=== PATIENT | female | born 1960 | race Caucasian/White ===

== ENCOUNTER → 2016-03-07 | Outpatient (CLI) | payer BC ==
[~2016-03-07] MED LIST: CIPR-255 PO; CITA20TA4 PO; CRAN1CAP15 PO; MISCCAP80 PO; OMEGCAP2 PO; OXYB5TAB74 PO; PHEN-775 PO; PRLSR20 PO
[2016-03-07 13:22] LABS: BASO % 0.6 %; BASO ABS # 0.03 K/uL (0-0.2); COMPLETE YES; EOS % 2.6 %; HEMATOCRIT 41.5 % (37-47); IG% 0.2 %; LYMPH % 32.8 %; LYMPH ABS # 1.63 K/uL (1.2-3.4); MEAN CELL VOLUME 86.3 fL (80-100); MEAN CORPUSCULAR HEMOGLOBIN 27.9 pg (25-34); MEAN CORPUSCULAR HGB CONC 32.3 g/dl (32-36); MEAN PLATELET VOLUME 12.2 fL (7.4-10.4); MONO % 5.2 %; NEUT % 58.6 %; PLATELET COUNT 201 K/uL (130-400); RED BLOOD COUNT 4.81 M/uL (4.2-5.4); WHITE BLOOD COUNT 4.97 K/uL (4.8-10.8)
[2016-03-07 14:05] LABS: BLOOD UREA NITROGEN 10 mg/dl (7-18); BUN/CREATININE RATIO 11.9 (10-20); CALCIUM 9.3 mg/dl (8.5-10.1); CARBON DIOXIDE 28 mmol/L (21-32); CHLORIDE 105 mmol/L (98-107); CREATININE 0.87 mg/dl (0.60-1.20); GLUCOSE 85 mg/dl (70-99); SODIUM 142 mmol/L (136-145)
== END | disposition home or self-care (01) ==
LOC: C.LAB1850 12:30
PROVIDERS: ATTEND Urology
DX: N20.0 Calculus of kidney (principal)

== ENCOUNTER 2016-03-13 06:11 | Day surgery (SDC) | payer BC, OTHER ==
[2016-03-08 15:39] VITALS: BMI 35.0
[~2016-03-13] VITALS: Ht 170.2 cm; Wt 102.3 kg
[~2016-03-13 06:11] MED LIST changes: -CIPR-255 PO; -OXYB5TAB74 PO; -PHEN-775 PO
[2016-03-13 06:32] VITALS: BP 147/95; PULSE 65; TEMP 36; O2SAT 95; Ht 170.2 cm; Wt 102.3 kg
[2016-03-13] MEDS ORDERED: CIPROFLOXACIN 400MG / 200ML D5W ONE (06:43)
--- NOTE | 2016-03-13 07:00 | History & Physical Bridge Note ---
H&P Re-Evaluation Bridge Note: I have examined the patient, reviewed the History & Physical and in the interval since the performance of the History & Physical I have noted the following changes of clinical significance: No changes noted
[2016-03-13] MEDS ORDERED: PROPOFOL IV EMULSION 10 MG/ML 20 ML VIAL IV ONE (08:11)
[2016-03-13] MEDS ORDERED: DEXAMETHASONE SOD INJ 4 MG/ML VIAL ONE (08:11)
[2016-03-13] MEDS ORDERED: LIDOCAINE HCL 2% 2 ML VIAL (20MG/ML) ONE (08:11)
[2016-03-13] MEDS ORDERED: ONDANSETRON INJ 2 MG/ML 2 ML VIAL ONE (08:11)
[2016-03-13] MEDS ORDERED: MIDAZOLAM HCL 1 MG/ML 2ML VIAL ONE (08:12)
[2016-03-13] MEDS ORDERED: FENTANYL CITRATE INJ 50 MCG/1 ML 2 ML VIAL ONE (08:12)
[2016-03-13] MEDS ORDERED: FENTANYL CITRATE INJ 50 MCG/1 ML 2 ML VIAL IV PRN (08:15)
[2016-03-13] MEDS ORDERED: EpHEDrine SULFATE INJ 50 MG/ML AMP IV PRN (08:15)
[2016-03-13] MEDS ORDERED: ATROPINE SULFATE 0.1 MG/ML 5ML SYR IV PRN (08:15)
[2016-03-13] MEDS ORDERED: CONRAY 30% 150ML BOTTLE INSTIL ONE (08:21)
[2016-03-13] MEDS ORDERED: CIPR-255 PO (08:27)
[2016-03-13] MEDS ORDERED: PHEN-775 PO (08:27)
[2016-03-13] MEDS ORDERED: OXYB5TAB74 PO (08:27)
--- NOTE | 2016-03-13 08:28 | Discharge Instructions ---
Discharge Instructions Admission Reason for Admission: Stones Discharge Discharge Diagnosis / Problem: R ureteral stone s/p laser litho Discharge Goals Goal(s): Improve function, Improve disease control, Therapeutic intervention Activity Recommendations Activity Limitations: per Instructions/Follow-up section Lifting Limitations: gradually increase as tolerated Exercise/Sports Limitations: rest today May Resume Sexual Activity: when tolerated Shower/Bathe: no limitations Driving or Machine Use: resume 1 day after discharge . Instructions / Follow-Up Instructions / Follow-Up As scheduled in office for stent removal Discharge Diet Recommended Diet: Regular Diet (good fluid intake) Procedures Procedures Performed: Cystoscopy, Right semi rigid Ureteroscopy, Laser Lithotripsy of right ureteral stone, basket stone extraction, Right ureteral stent insertion, right retrograde pyelogram Pending Studies Studies pending at discharge: no Medical Emergencies . Who to Call and When: Medical Emergencies: If at any time you feel your situation is an emergency, please call 911 immediately. . Non-Emergent Contact Non-Emergency issues call your: Urologist Call Non-Emergent contact if: you have a fever, temperature is above 101, your pain is not controlled, your pain is worsening, your pain is unusual for you, your pain is concerning you, you have any medication questions . . "Provider Documentation" section prepared by Callum Donato. VTE Core Measure Inpt VTE Proph given/why not?: SCD's
--- NOTE | 2016-03-13 08:29 | [facility] Post Operative Brief Note ---
Immediate Operative Summary Operative Date Mar 13, 2016. Pre-Operative Diagnosis Right side hydronephrosis, right ureteral stone Post-Operative Diagnosis Right side hydronephrosis, right ureteral stone with impaction Procedure(s) Performed Cystoscopy, Right semi rigid Ureteroscopy, Laser Lithotripsy of right ureteral stone, basket stone extraction, Right ureteral stent insertion, right retrograde pyelogram Surgeon Dr. Callum Donato Heavy Repairer Surgeon(s) None Estimated Blood Loss 0 mL Findings Impacted stone as noted on prior CT scan removed, no ureteral injury, good stent position after completion of case Specimens Permanent specimens A: Right ureteral stone fragments for analysis Drains 6 fr 26 cm loop stent Anesthesia [facility] Complication(s) None Disposition Recovery Room / PACU
[2016-03-13] MEDS ORDERED: OXYCODONE/ACETAMINOPHEN 5-325 TAB PO PRN (08:30)
[2016-03-13] MEDS ORDERED: ALBUTEROL HFA INHALER 8.5 GM INH ONE (08:32)
--- NOTE | 2016-03-13 08:33 | Anesthesiology Progress Note ---
Anesthesia Post Op Note Date & Time Mar 13, 2016 at 08:32 Vital Signs Pain Intensity: 0 Vital Signs Past 12 Hours Date Time Temp Pulse Resp B/P Pulse Ox O2 Delivery O2 Flow Rate FiO2 03/13/16 06:32 36 65 18 147/95 95 Room Air Notes Mental Status: alert / awake / arousable, participated in evaluation Pt Amnestic to Procedure: Yes Nausea / Vomiting: adequately controlled Pain: adequately controlled Airway Patency, RR, SpO2: stable & adequate BP & HR: stable & adequate Hydration State: stable & adequate Anesthetic Complications: no major complications apparent
--- NOTE | 2016-03-13 08:55 | DIAGNOSTIC IMAGING REPORT ---
RETROGRADE INCLUDES KUB CLINICAL HISTORY: Right-sided stone. Laser lithotripsy. COMPARISON STUDY: IVP dated 01/18/2016 FINDINGS: 78 seconds of fluoroscopic time was utilized. 5 intraoperative fluoroscopic spot images were provided for interpretation. These demonstrate retrograde catheterization of the right ureter. There is an area of mid right ureteral narrowing at the mid sacral level, possibly secondary to a calculus. There is #4 appears to demonstrate a small filling defect within the ureter at this level. The final images demonstrate placement of a nephroureteral stent. Only proximal portion of the stent is visualized. IMPRESSION: Intraoperative fluoroscopic spot images during laser lithotripsy, and stent placement. Electronically signed by: Solis Bowman M.D. 03/13/2016 8:53 AM Dictated Date/Time: 03/13/2016 8:51 AM
--- NOTE | 2016-03-13 09:02 | OPERATIVE REPORT ---
DATE OF OPERATION: 03/13/2016 PREOPERATIVE DIAGNOSIS: Right distal ureteral stone with hydronephrosis. POSTOPERATIVE DIAGNOSIS: Same, impacted ureteral stone. PROCEDURE: Cystoscopy, right retrograde pyelography, right semirigid ureteroscopy with laser lithotripsy, stone extraction, ureteral stent placement. SURGEON: Dr. Callum Donato. COUNSELLORS: None. ANESTHESIA: General anesthesia with laryngeal mask. COMPLICATIONS: None. ESTIMATED BLOOD LOSS: Minimal. SPECIMENS SENT TO PATHOLOGY: Right ureteral stone fragments for chemical analysis. DRAINS LEFT IN PLACE: Include a 6-Anguillan 26-cm loop ureteral stent. FINDINGS: Impacted right ureteral stone at the level of the vessels, fragmented and removed in its entirety with no evidence of ureteral injury or residual stone, good stent position at completion of case. BRIEF HISTORY: Ms. Hanley is a pleasant 55-year-old female who I have seen as an outpatient for history of right-sided stone disease. Her pain abated and stone was not visible for lithotripsy on KUB. Minimal right ureteral fullness was noted on IVP. However, repeat CT scan despite the patient's lack of symptoms demonstrated persistence of her stone in her right ureter. Seeing that this has been present for a few months at this point, she is being brought in for endoscopic management of her stone. Please see H\T\P for further details. Intravenous ciprofloxacin provided for antibiotic coverage. PROCEDURE IN DETAIL: The patient was properly identified and brought to the operative suite after identification of appropriate consent on the chart, general anesthesia with laryngeal mask was initiated and the patient was prepped and draped in standard fashion for this procedure. Full timeout procedure was followed. A 22-Anguillan rigid cystoscope was passed into the bladder under direct visualization and bladder was surveyed in its entirety including 30- and 70-degree lenses. This demonstrated no intravesical lesions, papillary masses or calculi. Right-sided ureteral orifice was cannulated using an open-ended catheter and gentle retrograde pyelography was performed. A filling defect over the sacrum consistent with the patient's prior stone location was appreciated. An angled Sensor tip wire was able to be advanced up to the level of the right kidney without difficulties past this area. Semirigid ureteroscope was then advanced over a second working Sensor wire to the level of the stone which was directly visualized. This was fragmented using a 270 micron fiber and pieces were grasped using the Zero Tip basket and extracted. These were sent for chemical analysis. After removing all the visible pieces, ureteroscope was easily passed up to the level of the proximal ureter with no evidence of residual stones. No ureteral tears or injury were appreciated throughout the case. Complete exit ureteroscopy was performed confirming the lack of stones and injury as noted above. After this was complete, cystoscope was backloaded over the safety wire, the 6-Anguillan 26-cm loop ureteral stent was advanced. Full redundant loops were present within the bladder and a coil was present within the proximal ureter. Good hydronephrotic drip was appreciated. Bladder was drained, the cystoscope was removed, anesthesia was reversed. The patient was transferred to recovery room in stable condition. FOLLOWUP CARE: The patient will be discharged to home with a prescription for ciprofloxacin, Ditropan and Pyridium. She notes she has a fair amount of narcotic pain medication at home residual from prior surgery. She is instructed to contact our office should she note any fevers, chills, nausea, vomiting or other significant difficulties in the postoperative period. Postoperative appointment is confirmed. I attest to the content of the Intraoperative Record and any orders documented therein. Any exceptio ns are noted below.
[2016-03-13 09:15] VITALS: BP 138/93; PULSE 81; TEMP 36.4; O2SAT 93
[2016-03-13 09:45] VITALS: BP 151/90; PULSE 81; TEMP 36.4; O2SAT 80
[2016-03-13 09:54] VITALS: BP 160/82; PULSE 81; TEMP 36.4; O2SAT 80
[2016-03-27] MEDS ORDERED: CIPROFLOXACIN / D5W 400 MG IV SCH (06:00)
[2016-03-27] MEDS ORDERED: LACTATED RINGER'S 1000ML 1,000 ML IV SCH (06:00)
== END 2016-03-13 10:00 | disposition home or self-care (01) ==
LOC: C.ACU 06:11
PROVIDERS: ATTEND Urology
DX: N20.1 Calculus of ureter (principal); N20.0 Calculus of kidney; N13.30 Unspecified hydronephrosis; R31.0 Gross hematuria; N81.11 Cystocele, midline; N81.6 Rectocele; N26.1 Atrophy of kidney (terminal)

== ENCOUNTER → 2016-03-21 | Outpatient (CLI) | payer BC ==
[~2016-03-21] MED LIST changes: +CIPR-255 PO; +OXYB5TAB74 PO; +PHEN-775 PO
--- NOTE | 2016-03-21 15:34 | DIAGNOSTIC IMAGING REPORT ---
KUB HISTORY: N20.0 Nephrolithiasis COMPARISON: KUB 01/17/2016. Abdomen and pelvis CT 02/02/2016. FINDINGS: The bowel gas pattern is unremarkable. There are no dilated loops of small bowel to suggest an obstruction. There is a stable 5 mm stone within the lower pole the left kidney. No right renal calculi. Proximal right ureteral stent is at the expected location of the right ureteropelvic junction. The distal stent is within the bladder. No ureteral stones identified. Round calcifications in the deep pelvis likely represent phleboliths. No pneumoperitoneum or pneumatosis. IMPRESSION: 1. A right ureteral stent is noted. The proximal portion of the stent resides within the expected location of the ureteropelvic junction. 2. Left-sided nephrolithiasis. 3. No ureteral calculi. Electronically signed by: Wood Welch M.D. 03/21/2016 3:32 PM Dictated Date/Time: 03/21/2016 3:29 PM
== END | disposition home or self-care (01) ==
LOC: C.RAD 15:02
PROVIDERS: ATTEND Urology
DX: N20.0 Calculus of kidney (principal)

== ENCOUNTER → 2016-06-25 | Outpatient (CLI) | payer BC ==
[~2016-06-25] MED LIST changes: +DTR/5 PO; +OPTIRAY 300 IV PRN; -OXYB5TAB74 PO; -PHEN-775 PO
--- NOTE | 2016-06-25 17:17 | DIAGNOSTIC IMAGING REPORT ---
IVP W/OR W/O TOMOGRAMS CLINICAL HISTORY: N20.0 Nephrolithiasis nephrocalcinosis COMPARISON STUDY: 01/18/2016 FINDINGS: Atrophic change left kidney. Maximum dimension is approximately 9 cm which is unchanged. Nonobstructing 3 mm calcification is mid aspect. Compensatory enlargement of the right kidney to 15 cm. No evidence for hydronephrosis. Ureters bilaterally are normal in course and caliber. No significant filling defect within the bladder. Mild post void residual. IMPRESSION: 1. Nonobstructing left renal calcification. 2. Moderate atrophy left kidney unchanged in the prior study. 3. Mild compensatory hypertrophic change of the right kidney 4. No evidence for an obstructing right urinary tract calculus. 5. No major change from the prior intravenous urogram Electronically signed by: Roger Strong M.D. 06/25/2016 5:16 PM Dictated Date/Time: 06/25/2016 5:13 PM
== END | disposition home or self-care (01) ==
LOC: C.RAD 14:24
PROVIDERS: ATTEND Urology
DX: N20.0 Calculus of kidney (principal)

== ENCOUNTER → 2016-09-03 | Outpatient (CLI) | payer BC ==
[~2016-09-03] MED LIST changes: -DTR/5 PO; -OPTIRAY 300 IV PRN; +OXYB5TAB74 PO
== END | disposition home or self-care (01) ==
LOC: C.PAPS 09:18
PROVIDERS: ATTEND Obstetrics & Gynecology
DX: Z01.419 Encounter for gynecological examination (general) (routine) without abnormal findings (principal)